=== PATIENT | male | born 1985 | race African-American/Black ===

== ENCOUNTER 2019-12-20 18:59 | Emergency (ER) | payer SELFPAY ==
[~2019-12-20] VITALS: Ht 185.4 cm; Wt 77.2 kg
[2019-12-20 19:47] VITALS: BP 129/70
[2019-12-20] MEDS ORDERED: METH4TAB2 PO (20:38)
[2019-12-20] MEDS ORDERED: HYDR-3164 PO (20:38)
--- NOTE | 2019-12-20 20:38 | PHYS DOC ---
Past Medical History Past Medical History: No Pertinent History Past Surgical History: No Surgical History Smoking Status: Current Every Day Smoker Alcohol Use: None Adult General Chief Complaint Chief Complaint: LOWER EXT PAIN HPI HPI Patient is a 34 year old male who presents with 1 month of continuous worsening of left back of the buttock sciatica sharp shooting pain down the back of his left leg. He's been taking ibuprofen at home. Review of Systems Review of Systems Musculoskeletal: Left back of leg sciatic pain. Denies back pain or joint pain [] All other systems were reviewed and found to be within normal limits, except as documented in this note. Allergies Allergies Allergies Coded Allergies Type Severity Reaction Last Updated Verified No Known Drug Allergies 12/20/19 No Physical Exam Physical Exam Constitutional: Well developed, well nourished, no acute distress, non-toxic appearance. [] HENT: Normocephalic, atraumatic, bilateral external ears normal, oropharynx moist, no oral exudates, nose normal. [] Eyes: PERRLA, EOMI, conjunctiva normal, no discharge. [] Neck: Normal range of motion, no tenderness, supple, no stridor. [] Cardiovascular:Heart rate regular rhythm, no murmur [] Lungs & Thorax: Bilateral breath sounds clear to auscultation [] Abdomen: Bowel sounds normal, soft, no tenderness, no masses, no pulsatile masses. [] Skin: Warm, dry, no erythema, no rash. [] Back: No tenderness, no CVA tenderness. [] Extremities: Left back of leg tenderness, no cyanosis, no clubbing, ROM intact, no edema. [] Neurologic: Alert and oriented X 3, normal motor function, normal sensory function, no focal deficits noted. [] Psychologic: Affect normal, judgement normal, mood normal. [] Current Patient Data Vital Signs Vital Signs Date Time Temp Pulse Resp B/P (MAP) Pulse Ox O2 Delivery O2 Flow Rate FiO2 12/20/19 19:47 98.5 66 16 129/70 (89) 94 Room Air 98.5 EKG EKG [] Radiology/Procedures Radiology/Procedures [] Course & Med Decision Making Course & Med Decision Making Pertinent Labs and Imaging studies reviewed. (See chart for details) States he fell today while walking because his left leg was weak and gave out. States the pain is too great now. He states he's been taking ibuprofen. No extremity edema. Denies numbness or tingling. Skin pink warm and dry.Popiteal pulse strong present. Patient is ambulatory but limping and slightly bent over while walking. Rates his pain a 9 out of 10. [] Dragon Disclaimer Dragon Disclaimer This electronic medical record was generated, in whole or in part, using a voice recognition dictation system. Departure Departure Impression: Primary Impression: Sciatica of left side Disposition: HOME, SELF-CARE Condition: STABLE Referrals: NO PCP (PCP) Patient Instructions: Sciatica with [facility] Additional Instructions: Follow up with a primary care physician. Take medication as prescribed. Scripts Hydrocodone/Apap 5-325 (NORCO 5-325 TABLET) 1 Each Tablet 1 TAB PO PRN Q6HRS PRN for PAIN, #8 TAB 0 Refills Prov: SAMINA JETER APRN 12/20/19 Methylprednisolone (MEDROL) 4 Mg Tab.ds.pk 1 PKG PO UD, #1 PKG Prov: SAMINA JETER APRN 12/20/19 SAMINA JETER APRN Dec 20, 2019 20:38
[2019-12-20] MEDS: HYDROcodone/APAP 5/325MG 1 TAB TABLET PO ONE (21:00)
== END 2019-12-20 21:06 | disposition home or self-care (01) ==
LOC: ER 18:59
DX: M54.32 Sciatica, left side (principal); F17.200 Nicotine dependence, unspecified, uncomplicated
CPT/HCPCS: 99283

== ENCOUNTER 2020-01-11 15:26 | Emergency (ER) | payer SELFPAY ==
[~2020-01-11] VITALS: Ht 185.4 cm; Wt 77.2 kg
[~2020-01-11 15:26] MED LIST: HYDR-3164 PO; METH4TAB2 PO
[2020-01-11 16:00] VITALS: BP 141/89
--- NOTE | 2020-01-11 16:32 | PHYS DOC ---
Past Medical History Past Medical History: No Pertinent History Past Surgical History: No Surgical History Smoking Status: Current Every Day Smoker Alcohol Use: None Adult General Chief Complaint Chief Complaint: BACK PAIN - NO INJURY HPI HPI Patient is a 34 year old male who presents to the ED today complaining of 10 out of 10 right low back pain radiating to the right lower extremity, symptoms began one month ago though he reports his had this pain previously when he was younger doing huddles. Patient denies any trauma. Reports occasional tingling and numbness to the right lower extremity. Denies any loss of bowel bladder function. Review of Systems Review of Systems Constitutional: Denies fever or chills [] GI: Denies abdominal pain, nausea, vomiting, bloody stools or diarrhea [] : Denies dysuria or hematuria [] Musculoskeletal: Reports right low back pain radiating to the right lower extremity Integument: Denies rash or skin lesions [] Neurologic: Denies headache, focal weakness or sensory changes [] All other systems were reviewed and found to be within normal limits, except as documented in this note. Allergies Allergies Allergies Coded Allergies Type Severity Reaction Last Updated Verified No Known Drug Allergies 12/20/19 No Physical Exam Physical Exam Constitutional: Well developed, well nourished, no acute distress, non-toxic appearance. [] Abdomen: Bowel sounds normal, soft, no tenderness, no masses, no pulsatile masses. [] Skin: Warm, dry, no erythema, no rash. [] Back: Diffuse paraspinal muscle tenderness to the right lumbar spine, no midline lumbar spine tenderness, no CVA tenderness. Positive straight leg raise to the right Extremities: No tenderness, no cyanosis, no clubbing, ROM intact, no edema. [] Neurologic: Alert and oriented X 3, normal motor function, normal sensory function, no focal deficits noted. [] Psychologic: Affect normal, judgement normal, mood normal. [] EKG EKG [] Radiology/Procedures Radiology/Procedures [] Course & Med Decision Making Course & Med Decision Making Pertinent Labs and Imaging studies reviewed. (See chart for details) This is a 34-year-old male patient presenting to the ED today with a right low back pain that appears to been going on for a while please see HPI, no cauda equina syndrome symptoms. No injury. Patient met hospital [facility] [place] he eloped Yamel Disclaimer Yamel Disclaimer This electronic medical record was generated, in whole or in part, using a voice recognition dictation system. Departure Departure Impression: Primary Impression: Right low back pain Additional Impression: Sciatica, right side Disposition: 07 AGAINST MEDICAL ADVICE Condition: STABLE Referrals: NO PCP (PCP) Problem Qualifiers Primary Impression: Right low back pain Chronicity: chronic Sciatica presence: with sciatica Sciatica laterality: sciatica of right side Qualified Codes: M54.41 - Lumbago with sciatica, right side; G89.29 - Other chronic pain NAYLA SCHILLING APRN Jan 11, 2020 16:32
== END 2020-01-11 16:25 | disposition left against medical advice (07) ==
LOC: ER 15:26
DX: M54.41 Lumbago with sciatica, right side (principal); R20.0 Anesthesia of skin; F17.200 Nicotine dependence, unspecified, uncomplicated
CPT/HCPCS: 99281